=== PATIENT | female | born 1990 | race Caucasian/White ===

== ENCOUNTER 2017-04-09 12:44 | Emergency (ER) | payer MEDICAID ==
[~2017-04-09] VITALS: Ht 157.5 cm; Wt 50.0 kg
[2017-04-09 13:25] VITALS: BP 118/56
== END 2017-04-09 17:05 | disposition left against medical advice (07) ==
LOC: ER 12:44
DX: Z53.21 Procedure and treatment not carried out due to patient leaving prior to being seen by health care provider (principal)

== ENCOUNTER 2017-08-31 07:19 | Emergency (ER) | payer MEDICAID ==
[~2017-08-31] VITALS: Ht 157.5 cm; Wt 47.0 kg
[2017-08-31] MEDS ORDERED: FAMOTIDINE 20MG/2ML VIAL IV STA (08:55)
[2017-08-31] MEDS ORDERED: ONDANSETRON HCL 4MG/2ML VIAL IV STA (08:55)
[2017-08-31] MEDS ORDERED: SODIUM CHLORIDE 0.9% 1,000 ML IV ONE (08:55)
[2017-08-31 09:25] LABS: CHLORIDE 106 mEq/L (98-107)
[2017-08-31 09:27] LABS: BASOPHILS % 0.4 % (0.0-2.0); EOSINOPHILS % 0.5 % (0.0-5.0); HEMATOCRIT. 40.1 % (36.0-48.0); HEMOGLOBIN. 13.4 g/dL (12.0-16.0); LYMPHOCYTES % 12.9 % (20.0-50.0); MEAN CORPUSCULAR HEMOGLOBIN 31.2 pg (28.0-32.0); MEAN CORPUSCULAR VOLUME 93.5 fL (81.0-99.0); MEAN PLATELET VOLUME 8.2 fl (7.4-10.4); MONOCYTES % 4.7 % (2.0-8.0); NEUTROPHILS % 81.5 % (40.0-76.0); PLATELET 265 x1000/uL (130-400); RED BLOOD CELL COUNT 4.29 mill/uL (4.2-5.4); RED CELL DISTRIBUTION WIDTH 14.3 % (11.6-14.6)
[2017-08-31 11:02] LABS: HCG SCREEN NEGATIVE
[2017-08-31 11:11] LABS: *AMPHETAMINES SCREEN URINE NEGATIVE (NEGATIVE); *BARBITURATES SCREEN URINE NEGATIVE (NEGATIVE); *BENZODIAZEPINES SCREEN URINE NEGATIVE (NEGATIVE); *COCAINE SCREEN URINE NEGATIVE (NEGATIVE); METHADONE URINE SCREEN NEGATIVE (NEGATIVE); OPIATES URINE SCREEN NEGATIVE (NEGATIVE); PHENCYCLIDINE URINE SCREEN NEGATIVE (NEGATIVE)
[2017-08-31 11:45] LABS: CANNABINOID URINE SCREEN PRESUMTIVE POSITIVE (NEGATIVE)
[2017-08-31 11:57] LABS: CLARITY URINE CLEAR (CLEAR); COLOR URINE YELLOW (YELLOW); KETONES URINE 2+ (NEGATIVE); LEUKOCYTE ESTERASE URINE TRACE (NEGATIVE); NITRITE URINE NEGATIVE (NEGATIVE); OCCULT BLOOD URINE 3+ (NEGATIVE); PH URINE 6.5 (4.5-8.0); PROTEIN URINE NEGATIVE (NEGATIVE); UROBILINOGEN URINE 0.2 E.U./dL (0.2-1.0)
[2017-08-31 12:33] VITALS: BP 105/75
== END 2017-08-31 13:25 | disposition home or self-care (01) ==
LOC: ER 07:32
DX: R10.13 Epigastric pain (principal); R53.1 Weakness; F41.9 Anxiety disorder, unspecified; E86.0 Dehydration; R45.850 Homicidal ideations; R45.851 Suicidal ideations; F12.10 Cannabis abuse, uncomplicated
CPT/HCPCS: 36415; 71045; 80053; 80305; 81003; 83690; 84703; 85025; 93005; 96361; 96374; 96375; 99285; J2405; J3490; J7030; Z7610

== ENCOUNTER 2018-08-12 07:01 | Emergency (ER) | payer MEDICAID ==
[~2018-08-12] VITALS: Ht 157.5 cm; Wt 50.0 kg
[2018-08-12 07:25] VITALS: BP 106/67
[2018-08-12 08:28] LABS: CLARITY URINE CLEAR (CLEAR); COLOR URINE YELLOW (YELLOW); KETONES URINE 3+ (NEGATIVE); LEUKOCYTE ESTERASE URINE NEGATIVE (NEGATIVE); NITRITE URINE NEGATIVE (NEGATIVE); OCCULT BLOOD URINE NEGATIVE (NEGATIVE); PH URINE 6.5 (4.5-8.0); PROTEIN URINE NEGATIVE (NEGATIVE); SPECIFIC GRAVITY URINE 1.029 (1.005-1.030)
== END 2018-08-12 13:27 | disposition left against medical advice (07) ==
LOC: ER 07:01
DX: Z53.21 Procedure and treatment not carried out due to patient leaving prior to being seen by health care provider (principal)
CPT/HCPCS: 81025

== ENCOUNTER 2018-09-19 10:13 | Emergency (ER) | payer MEDICAID ==
[~2018-09-19] VITALS: Ht 157.5 cm; Wt 50.0 kg
[2018-09-19] MEDS ORDERED: SODIUM CHLORIDE 0.9% 1,000 ML IV ONE (12:36)
[2018-09-19] MEDS ORDERED: ONDANSETRON HCL 4MG/2ML INJ IV STA (12:36)
[2018-09-19 12:56] LABS: CLARITY URINE CLEAR (CLEAR); COLOR URINE YELLOW (YELLOW); KETONES URINE 3+ (NEGATIVE); LEUKOCYTE ESTERASE URINE NEGATIVE (NEGATIVE); NITRITE URINE NEGATIVE (NEGATIVE); OCCULT BLOOD URINE NEGATIVE (NEGATIVE); PROTEIN URINE NEGATIVE (NEGATIVE); SPECIFIC GRAVITY URINE 1.026 (1.005-1.030)
[2018-09-19 13:23] LABS: HEMATOCRIT 40.6 % (36.0-48.0); HEMOGLOBIN 13.3 g/dL (12.0-16.0); MEAN CORPUSCULAR HEMOGLOBIN 31.1 pg (28.0-32.0); MEAN CORPUSCULAR VOLUME 94.7 fL (81.0-99.0); PLATELET 263 x1000/uL (130-400); RED BLOOD CELL COUNT 4.29 mill/uL (4.2-5.4); RED CELL DISTRIBUTION WIDTH 14.1 % (11.6-14.6)
[2018-09-19 13:29] LABS: CHLORIDE 103 mEq/L (98-107)
[2018-09-19] MEDS ORDERED: CEFTRIAXONE 1 G PREMIX 50 ML IV ONE (14:00)
[2018-09-19] MEDS ORDERED: POTASSIUM CHLORIDE 20MEQ TABLET SR PO ONE (14:15)
[2018-09-19 14:36] VITALS: BP 108/75
== END 2018-09-19 14:38 | disposition home or self-care (01) ==
LOC: ER 10:13
DX: O26.891 Other specified pregnancy related conditions, first trimester (principal); J02.0 Streptococcal pharyngitis; O21.9 Vomiting of pregnancy, unspecified; Z3A.01 Less than 8 weeks gestation of pregnancy
CPT/HCPCS: 36415; 80048; 81003; 81025; 85027; 87430; 87804; 96365; 96375; 99283; J0696; J2405; J7030

== ENCOUNTER 2018-12-25 12:31 | Observation (INO) | payer MEDICAID ==
[~2018-12-25] VITALS: Ht 157.5 cm; Wt 52.0 kg
[2018-12-25 12:39] VITALS: BP 119/71
[2018-12-25] MEDS ORDERED: PREN-55 PO (13:25)
[2018-12-25] MEDS ORDERED: DEXT 5%/LACTATED RINGERS 1,000 ML IV ONE (13:30)
[2018-12-25] MEDS ORDERED: ACETAMINOPHEN 650MG/20.3ML UDC PO ONE (13:30)
[2018-12-25 14:06] LABS: CLARITY URINE CLEAR (CLEAR); COLOR URINE YELLOW (YELLOW); KETONES URINE NEGATIVE (NEGATIVE); LEUKOCYTE ESTERASE URINE TRACE (NEGATIVE); NITRITE URINE NEGATIVE (NEGATIVE); OCCULT BLOOD URINE NEGATIVE (NEGATIVE); PH URINE 6.5 (4.5-8.0); PROTEIN URINE NEGATIVE (NEGATIVE); UROBILINOGEN URINE 0.2 E.U./dL (0.2-1.0)
[2018-12-25 14:47] LABS: BASOPHILS % 0.2 % (0.0-2.0); EOSINOPHILS % 0.3 % (0.0-5.0); HEMATOCRIT. 37.4 % (36.0-48.0); HEMOGLOBIN. 12.4 g/dL (12.0-16.0); LYMPHOCYTES % 7.8 % (20.0-50.0); MEAN CORPUSCULAR HEMOGLOBIN 30.9 pg (28.0-32.0); MEAN CORPUSCULAR VOLUME 93.1 fL (81.0-99.0); MEAN PLATELET VOLUME 9.6 fl (7.4-10.4); MONOCYTES % 3.9 % (2.0-8.0); NEUTROPHILS % 87.8 % (40.0-76.0); PLATELET 194 x1000/uL (130-400); RED BLOOD CELL COUNT 4.01 mill/uL (4.2-5.4); RED CELL DISTRIBUTION WIDTH 14.1 % (11.6-14.6)
== END 2018-12-25 15:32 | disposition home or self-care (01) ==
LOC: ER 12:49 → 8 EST LDRP 12:51
PROVIDERS: ADMIT Obstetrics & Gynecology; ATTEND Obstetrics & Gynecology
DX: O21.2 Late vomiting of pregnancy (principal); O26.892 Other specified pregnancy related conditions, second trimester; R51 Headache; Z3A.21 21 weeks gestation of pregnancy
CPT/HCPCS: 36415; 76805; 81003; 85025; 99281; G0378; 96360; 96361

== ENCOUNTER 2019-05-02 02:19 | Inpatient (IN) | payer MEDICAID ==
[~2019-05-02] VITALS: Ht 157.5 cm; Wt 70.8 kg
[~2019-05-02 02:19] MED LIST: PREN-55 PO
[2019-05-02] MEDS ORDERED: CARBOPROST TROMETHAMINE 250 MCG/ML AMPUL IM PRN (03:00)
[2019-05-02] MEDS ORDERED: LIDOCAINE HCL 1% 20ML VIAL (Pyxis) INJ INFIL SCH (03:00)
[2019-05-02] MEDS ORDERED: NALOXONE HCL 0.4 MG/ML 1ML VIAL IM PRN (03:00)
[2019-05-02] MEDS: LACTATED RINGERS 1,000 ML IV SCH ×3 (03:54→10:08)
[2019-05-02] MEDS ORDERED: PENICILLIN G POTASSIUM 5 MMU in DEXT 5% WATER 100 ML IV SCH (04:00)
[2019-05-02] MEDS: BUTORPHANOL TARTRATE 2 MG/ML VIAL IV PRN ×2 (04:23→07:12)
[2019-05-02 04:57] LABS: CLARITY URINE CLOUDY (CLEAR); COLOR URINE ORANGE (YELLOW); KETONES URINE NEGATIVE (NEGATIVE); LEUKOCYTE ESTERASE URINE 3+ (NEGATIVE); NITRITE URINE NEGATIVE (NEGATIVE); OCCULT BLOOD URINE 3+ (NEGATIVE); PROTEIN URINE 1+ (NEGATIVE); SPECIFIC GRAVITY URINE 1.017 (1.005-1.030)
[2019-05-02 04:58] LABS: BASOPHILS % 0.3 % (0.0-2.0); EOSINOPHILS % 0.9 % (0.0-5.0); HEMATOCRIT. 36.9 % (36.0-48.0); HEMOGLOBIN. 12.1 g/dL (12.0-16.0); MEAN CORPUSCULAR HEMOGLOBIN 29.1 pg (28.0-32.0); MEAN PLATELET VOLUME 9.1 fl (7.4-10.4); NEUTROPHILS % 73.8 % (40.0-76.0); PLATELET 240 x1000/uL (130-400); RED BLOOD CELL COUNT 4.15 mill/uL (4.2-5.4); RED CELL DISTRIBUTION WIDTH 15.6 % (11.6-14.6)
[2019-05-02 05:07] LABS: INR 0.9; PARTIAL THROMBOPLASTIN TIME 28.2 sec (23.4-31.0); PROTHROMBIN TIME 9.4 sec (9.6-11.0)
[2019-05-02 05:31] LABS: *AMPHETAMINES SCREEN URINE NEGATIVE (NEGATIVE); *BARBITURATES SCREEN URINE NEGATIVE (NEGATIVE)
[2019-05-02 05:32] LABS: *BENZODIAZEPINES SCREEN URINE NEGATIVE (NEGATIVE); *COCAINE SCREEN URINE NEGATIVE (NEGATIVE); METHADONE URINE SCREEN NEGATIVE (NEGATIVE); OPIATES URINE SCREEN NEGATIVE (NEGATIVE); PHENCYCLIDINE URINE SCREEN NEGATIVE (NEGATIVE)
[2019-05-02 05:33] LABS: CANNABINOID URINE SCREEN NEGATIVE (NEGATIVE)
[2019-05-02] MEDS ORDERED: ROPIVACAINE HCL/PF EPIDURAL 200 ML EPI SCH (09:15)
[2019-05-02] MEDS ORDERED: DIPHENHYDRAMINE 50MG/ML VIAL IV PRN (09:15)
[2019-05-02] MEDS ORDERED: ONDANSETRON HCL 4MG/2ML INJ IV PRN (09:15)
[2019-05-02] MEDS ORDERED: KETOROLAC 30MG/ML VIAL IV PRN (09:30)
[2019-05-02] MEDS ORDERED: DIPHENHYDRAMINE 50MG/ML VIAL IM PRN (09:30)
[2019-05-02] MEDS ORDERED: ONDANSETRON HCL 4MG/2ML INJ IM PRN (09:30)
[2019-05-02] MEDS ORDERED: MINERAL OIL 30ML BOTTLE PO NR (09:30)
[2019-05-02] MEDS ORDERED: NALOXONE HCL 0.4 MG/ML 1ML VIAL IV PRN (09:30)
[2019-05-02] MEDS: PENICILLIN G POTASSIUM 2.5 MMU in DEXTROSE 5% WATER 50 ML IV SCH ×2 (10:30→14:49)
[2019-05-02 11:15] LABS: HEPATITIS B SURFACE ANTIGEN NEGATIVE
[2019-05-02] MEDS: DEXT 5%/LR + PITOCIN 20UNITS/L 1,000 ML IV SCH ×2 (12:11→19:42)
[2019-05-02] MEDS ORDERED: DEXT 5%/LR + PITOCIN 20UNITS/L 1,000 ML IV SCH (19:03)
[2019-05-02] MEDS ORDERED: LANOLIN OINT 7GM TUBE TOP PRN (19:15)
[2019-05-02] MEDS ORDERED: GLYCERIN/WITCH HAZEL LEAF MEDICATED PAD TOP PRN (19:15)
[2019-05-02] MEDS ORDERED: DIPHENHYDRAMINE 25MG CAPSULE PO PRN (19:15)
[2019-05-02] MEDS ORDERED: IBUPROFEN 400MG TABLET PO PRN (19:15)
[2019-05-02] MEDS ORDERED: BISACODYL 10MG SUPP PR PRN (19:15)
[2019-05-02] MEDS ORDERED: TETANUS, DIPHTHERIA, PERTUSSIS VAC/PF 0.5ML (>7YR OLD) IM ONE (19:15)
[2019-05-02] MEDS ORDERED: HEMORRHOIDAL SUPP PR PRN (19:15)
[2019-05-02] MEDS ORDERED: ACETAMINOPHEN WITH CODEINE 300/30MG TABLET PO PRN (19:15)
[2019-05-02] MEDS: IBUPROFEN 800MG TABLET PO PRN (19:55)
[2019-05-02 21:00] VITALS: BP 115/63
[2019-05-02] MEDS: SIMETHICONE 80MG TABLET CHEW PO SCH (21:00)
[2019-05-02] MEDS: DOCUSATE SODIUM 100MG CAPSULE PO SCH (21:00)
[2019-05-03] VITALS: BP 112/65
[2019-05-03 04:40] VITALS: BP 113/66
[2019-05-03 07:30] VITALS: BP 122/78
[2019-05-03 08:15] LABS: BASOPHILS % 0.2 % (0.0-2.0); EOSINOPHILS % 0.6 % (0.0-5.0); HEMATOCRIT. 34.5 % (36.0-48.0); HEMOGLOBIN. 11.2 g/dL (12.0-16.0); LYMPHOCYTES % 11.9 % (20.0-50.0); MEAN PLATELET VOLUME 8.7 fl (7.4-10.4); MONOCYTES % 7.5 % (2.0-8.0); NEUTROPHILS % 79.8 % (40.0-76.0); PLATELET 218 x1000/uL (130-400); RED BLOOD CELL COUNT 3.87 mill/uL (4.2-5.4); RED CELL DISTRIBUTION WIDTH 15.6 % (11.6-14.6)
[2019-05-03] MEDS: PRENATAL VIT/FE FUMARATE/FA TABLET PO SCH (13:28)
[2019-05-03] MEDS: FERROUS SULFATE 325MG TABLET PO SCH (13:29)
[2019-05-03] MEDS: IBUPROFEN 800MG TABLET PO PRN (13:29)
[2019-05-03 14:10] VITALS: BP 120/72
[2019-05-03 20:30] VITALS: BP 122/81
[2019-05-03] MEDS: DOCUSATE SODIUM 100MG CAPSULE PO SCH (21:41)
[2019-05-03] MEDS: SIMETHICONE 80MG TABLET CHEW PO SCH (21:41)
[2019-05-04 04:00] VITALS: BP 107/63
[2019-05-04 07:48] VITALS: BP 118/75
[2019-05-04] MEDS: PRENATAL VIT/FE FUMARATE/FA TABLET PO SCH (09:26)
[2019-05-04] MEDS: FERROUS SULFATE 325MG TABLET PO SCH (09:26)
[2019-05-04] MEDS: SIMETHICONE 80MG TABLET CHEW PO SCH (09:26)
== END 2019-05-04 10:50 | disposition home or self-care (01) | DRG 560 ==
LOC: 8 EST LDRP 02:19 → OBSVTOIN 02:19 → 8EST 20:40
PROVIDERS: ADMIT Obstetrics & Gynecology; ATTEND Obstetrics & Gynecology
PROC: 10E0XZZ Delivery of Products of Conception, External Approach (ICD-10-PCS; principal; 2019-05-02)
PROC: 3E0R3BZ Introduction of Anesthetic Agent into Spinal Canal, Percutaneous Approach (ICD-10-PCS; 2019-05-02)
PROC: 00HU33Z Insertion of Infusion Device into Spinal Canal, Percutaneous Approach (ICD-10-PCS; 2019-05-02)
DX: O98.82 Other maternal infectious and parasitic diseases complicating childbirth (principal); B95.1 Streptococcus, group B, as the cause of diseases classified elsewhere; Z3A.39 39 weeks gestation of pregnancy; Z37.0 Single live birth
CPT/HCPCS: 36415; 80305; 81003; 86592; 86703; 86762; 86850; 86900; 87340; 99281; G0378; J0595; J2540; J2590; J2795; J7060; J7120; A4315

== ENCOUNTER 2020-10-24 11:36 | Emergency (ER) | payer MEDICAID ==
[~2020-10-24] VITALS: Ht 157.5 cm; Wt 48.0 kg
[2020-10-24 12:10] LABS: CLARITY URINE CLEAR (CLEAR); COLOR URINE YELLOW (YELLOW); KETONES URINE 3+ (NEGATIVE); LEUKOCYTE ESTERASE URINE 1+ (NEGATIVE); NITRITE URINE NEGATIVE (NEGATIVE); OCCULT BLOOD URINE NEGATIVE (NEGATIVE); PROTEIN URINE NEGATIVE (NEGATIVE); SPECIFIC GRAVITY URINE 1.028 (1.005-1.030); UROBILINOGEN URINE 0.2 E.U./dL (0.2-1.0)
[2020-10-24] MEDS ORDERED: ONDANSETRON HCL 4MG/2ML INJ IV ONE (12:15)
[2020-10-24] MEDS ORDERED: SODIUM CHLORIDE 0.9% 1,000 ML IV ONE (12:15)
[2020-10-24] MEDS ORDERED: DEXT 5%/0.9% NACL 1,000 ML IV ONE (12:15)
[2020-10-24 13:01] LABS: BASOPHILS % 0.1 % (0.0-2.0); EOSINOPHILS % 0.1 % (0.0-5.0); HEMATOCRIT. 41.5 % (36.0-48.0); HEMOGLOBIN. 13.3 g/dL (12.0-16.0); LYMPHOCYTES % 7.7 % (20.0-50.0); MEAN CORPUSCULAR HEMOGLOBIN 29.8 pg (28.0-32.0); MEAN PLATELET VOLUME 8.3 fl (7.4-10.4); MONOCYTES % 4.4 % (2.0-8.0); NEUTROPHILS % 87.7 % (40.0-76.0); PLATELET 293 x1000/uL (130-400); RED BLOOD CELL COUNT 4.46 mill/uL (4.2-5.4); RED CELL DISTRIBUTION WIDTH 14.8 % (11.6-14.6)
[2020-10-24 13:09] LABS: CHLORIDE 106 mEq/L (98-107)
[2020-10-24 13:10] LABS: INR 1.1; PROTHROMBIN TIME 11.3 sec (9.6-11.0)
[2020-10-24 13:11] LABS: HCG SCREEN NEGATIVE
[2020-10-24] MEDS ORDERED: NITR-87 MT (16:41)
[2020-10-24] MEDS ORDERED: NITROFURANTOIN 100MG M/M CAPSULE PO ONE (16:45)
[2020-10-24 18:14] VITALS: BP 121/68
== END 2020-10-24 19:00 | disposition home or self-care (01) ==
LOC: ER 11:57
DX: E86.0 Dehydration (principal); R11.10 Vomiting, unspecified; R19.7 Diarrhea, unspecified; F12.10 Cannabis abuse, uncomplicated; Z98.51 Tubal ligation status
CPT/HCPCS: 36415; 76700; 80053; 81003; 81025; 83605; 83690; 84703; 85025; 85610; 93005; 96361; 96374; 99285; J2405; J7030; J7042

== ENCOUNTER 2021-07-20 05:25 | Emergency (ER) | payer SELFPAY ==
[~2021-07-20] VITALS: Ht 157.5 cm; Wt 52.0 kg
[~2021-07-20 05:25] MED LIST changes: +NITR-87 MT; -PREN-55 PO
[2021-07-20] MEDS ORDERED: TETRACAINE/BENZOCAINE/BUTAMBEN 20 GM SPRAY MM NR (06:00)
[2021-07-20] MEDS ORDERED: TOPUD PO (06:25)
[2021-07-20] MEDS ORDERED: AMOX-424 PO (06:25)
[2021-07-20 06:55] VITALS: BP 112/60
== END 2021-07-20 06:55 | disposition home or self-care (01) ==
LOC: ER 05:25
DX: J36 Peritonsillar abscess (principal); F12.10 Cannabis abuse, uncomplicated; Z98.51 Tubal ligation status
CPT/HCPCS: 42700; 99283; Z7610

== ENCOUNTER 2021-07-21 06:12 | Emergency (ER) | payer SELFPAY ==
[~2021-07-21] VITALS: Ht 157.5 cm; Wt 68.2 kg
[~2021-07-21 06:12] MED LIST changes: +AMOX-424 PO; +TOPUD PO
[2021-07-21 06:20] VITALS: BP 127/60
[2021-07-21] MEDS ORDERED: MAGNESIUM/ALUMINUM HYDROXIDE/SIMETHICONE 30ML UDC PO STA (07:10)
[2021-07-21] MEDS ORDERED: VISCOUS LIDOCAINE 2% 15 ML UDC PO STA (07:10)
[2021-07-21] MEDS ORDERED: KETOROLAC 30MG/ML VIAL IV ONE (07:15)
[2021-07-21] MEDS ORDERED: DEXAMETHASONE 4MG/ML 1ML VIAL IV ONE (07:15)
== END 2021-07-21 08:13 | disposition home or self-care (01) ==
LOC: ER 06:34
DX: J36 Peritonsillar abscess (principal); F12.10 Cannabis abuse, uncomplicated; Z98.51 Tubal ligation status
CPT/HCPCS: 93005; 99283

== ENCOUNTER 2021-11-27 08:53 | Emergency (ER) | payer MEDICAID ==
[~2021-11-27] VITALS: Ht 157.5 cm; Wt 60.0 kg
[2021-11-27 08:59] VITALS: BP 116/63
[2021-11-27] MEDS ORDERED: AMOX-424 MT (09:38)
[2021-11-27] MEDS ORDERED: CETIRIZINE 10MG TABLET PO SCH (09:45)
[2021-11-27] MEDS ORDERED: DEXAMETHASONE 4MG/ML 1ML VIAL IM ONE (09:45)
== END 2021-11-27 10:21 | disposition home or self-care (01) ==
LOC: ER 08:53
DX: T78.40XA Allergy, unspecified, initial encounter (principal); X58.XXXA Exposure to other specified factors, initial encounter; F41.9 Anxiety disorder, unspecified; Z98.51 Tubal ligation status; F12.10 Cannabis abuse, uncomplicated
CPT/HCPCS: 96372; 99283; J1100

== ENCOUNTER 2022-10-25 16:08 | Emergency (ER) | payer MEDICAID ==
[~2022-10-25] VITALS: Ht 157.5 cm; Wt 49.0 kg
[~2022-10-25 16:08] MED LIST changes: +AMOX-424 MT
[2022-10-25] MEDS ORDERED: CYCL5TAB MT (18:51)
[2022-10-25 19:00] VITALS: BP 115/68
[2022-10-25] MEDS ORDERED: KETOROLAC 60MG/2ML VIAL IM ONE (19:00)
[2022-10-25] MEDS ORDERED: CYCLOBENZAPRINE 10MG TABLET PO ONE (19:00)
[2022-10-25 19:11] LABS: CLARITY URINE CLEAR (CLEAR); COLOR URINE YELLOW (YELLOW); KETONES URINE NEGATIVE (NEGATIVE); LEUKOCYTE ESTERASE URINE TRACE (NEGATIVE); NITRITE URINE NEGATIVE (NEGATIVE); OCCULT BLOOD URINE NEGATIVE (NEGATIVE); PROTEIN URINE NEGATIVE (NEGATIVE)
[2022-10-25] MEDS ORDERED: KETOROLAC 15MG/ML VIAL IM NR (19:15)
== END 2022-10-25 19:24 | disposition home or self-care (01) ==
LOC: ER 16:08
DX: S39.012A Strain of muscle, fascia and tendon of lower back, initial encounter (principal); F12.10 Cannabis abuse, uncomplicated; Z98.51 Tubal ligation status; X58.XXXA Exposure to other specified factors, initial encounter; Y93.89 Activity, other specified; Y92.89 Other specified places as the place of occurrence of the external cause; Y99.8 Other external cause status
CPT/HCPCS: 81003; 81025; 96372; 99283; J1885

== ENCOUNTER 2023-02-16 09:13 | Emergency (ER) | payer MEDICAID ==
[~2023-02-16] VITALS: Ht 157.5 cm; Wt 53.0 kg
[~2023-02-16 09:13] MED LIST changes: +CYCL5TAB MT
[2023-02-16 09:18] VITALS: BP 110/46; PULSE 78; RESP 17; O2SAT 99
[2023-02-16 09:45] VITALS: TEMP 98.5
[2023-02-16] MEDS ORDERED: ACETAMINOPHEN 325MG TABLET PO ONE (09:45)
[2023-02-16] MEDS ORDERED: TOPUD MT (09:46)
== END 2023-02-16 10:14 | disposition home or self-care (01) ==
LOC: ER 09:13
DX: R68.84 Jaw pain (principal); F41.9 Anxiety disorder, unspecified; Z98.51 Tubal ligation status; F12.10 Cannabis abuse, uncomplicated; Z79.899 Other long term (current) drug therapy
CPT/HCPCS: 99291

== ENCOUNTER 2023-03-10 13:39 | Emergency (ER) | payer MEDICAID ==
[~2023-03-10 13:39] MED LIST changes: +TOPUD MT
[2023-03-10 13:43] VITALS: BP 120/81; PULSE 90; RESP 16; TEMP 98.9
[2023-03-10] MEDS ORDERED: AMOX1TAB16 MT (13:57)
[2023-03-10] MEDS ORDERED: FLUT9.9S BOTHNSTRLS (13:57)
[2023-03-10] MEDS ORDERED: PHEN10TA MT (13:59)
[2023-03-10] MEDS ORDERED: CETI10CA11 MT (13:59)
[2023-03-10] MEDS ORDERED: NAPR375T5 MT (14:00)
== END 2023-03-10 14:08 | disposition home or self-care (01) ==
LOC: ER 13:39
DX: H66.91 Otitis media, unspecified, right ear (principal); F12.10 Cannabis abuse, uncomplicated; Z98.51 Tubal ligation status; Z79.899 Other long term (current) drug therapy
CPT/HCPCS: 99283

== ENCOUNTER 2023-03-11 19:34 | Emergency (ER) | payer MEDICAID ==
[~2023-03-11] VITALS: Ht 157.5 cm; Wt 51.8 kg
[~2023-03-11 19:34] MED LIST changes: +AMOX1TAB16 MT; +CETI10CA11 MT; +FLUT9.9S BOTHNSTRLS; +NAPR375T5 MT; +PHEN10TA MT
[2023-03-11 19:46] VITALS: BP 134/82; PULSE 108; RESP 16; TEMP 98.6; O2SAT 100
[2023-03-11 22:07] LABS: BASOPHILS % 0.3 % (0.0-2.0); EOSINOPHILS % 0.7 % (0.0-5.0); HEMATOCRIT. 37.4 % (36.0-48.0); HEMOGLOBIN. 12.5 g/dL (12.0-16.0); LYMPHOCYTES % 11.2 % (20.0-50.0); MEAN CORPUSCULAR HEMOGLOBIN 31.2 pg (28.0-32.0); MEAN CORPUSCULAR HGB CONC 33.4 g/dL (31.0-37.0); MEAN CORPUSCULAR VOLUME 93.4 fL (81.0-99.0); MONOCYTES % 5.3 % (2.0-8.0); NEUTROPHILS % 82.5 % (40.0-76.0); PLATELET 279 x1000/uL (130-400); RED CELL DISTRIBUTION WIDTH 13.8 % (11.6-14.6); WHITE BLOOD COUNT 12.4 x1000/uL (4.5-11.0)
[2023-03-11 22:14] LABS: CHLORIDE 106 mEq/L (98-107); INDEX HEMOLYSI 1 (1-3); INDEX ICTERIC 1 (1-4); INDEX LIPEMIC 1 (1-3); POTASSIUM 4.5 mEq/L (3.5-5.1); SODIUM 138 mEq/L (136-145)
[2023-03-11 22:21] LABS: ALANINE AMINOTRANSFERASE 15 IU/L (13-61); ALBUMIN 4.1 g/dL (3.4-5.0); ASPARTATE AMINOTRANSFERASE 13 IU/L (15-37); BILIRUBIN TOTAL 0.2 mg/dL (0.1-1.0); CALCIUM 8.9 mg/dL (8.5-10.1); CARBON DIOXIDE 29 mEq/L (21-32); CREATININE 0.5 mg/dL (0.6-1.3); GLUCOSE 94 mg/dL (70-105); UREA NITROGEN BLOOD 13 mg/dL (7-21)
[2023-03-11 22:25] LABS: PROTEIN TOTAL 8.1 g/dL (6.0-8.3); TROPONIN I HIGH SENSITIVITY 4 ng/L (<54)
== END 2023-03-11 23:31 | disposition left against medical advice (07) ==
LOC: ER 19:34
DX: Z53.21 Procedure and treatment not carried out due to patient leaving prior to being seen by health care provider (principal)
CPT/HCPCS: 36415; 71045; 80053; 84484; 85025; 93005; 99281

== ENCOUNTER 2023-03-14 12:55 | Emergency (ER) | payer MEDICAID ==
[~2023-03-14] VITALS: Ht 167.6 cm; Wt 45.0 kg
[2023-03-14 13:10] VITALS: O2SAT 97
[2023-03-14 14:09] LABS: HEMATOCRIT. 38.5 % (36.0-48.0); HEMOGLOBIN. 12.8 g/dL (12.0-16.0); MEAN CORPUSCULAR HEMOGLOBIN 31.2 pg (28.0-32.0); MEAN CORPUSCULAR HGB CONC 33.2 g/dL (31.0-37.0); MEAN CORPUSCULAR VOLUME 93.9 fL (81.0-99.0); MEAN PLATELET VOLUME 7.8 fl (7.4-10.4); PLATELET 302 x1000/uL (130-400); RED BLOOD CELL COUNT 4.09 mill/uL (4.2-5.4); RED CELL DISTRIBUTION WIDTH 13.7 % (11.6-14.6); WHITE BLOOD COUNT 11.4 x1000/uL (4.5-11.0)
[2023-03-14 14:14] LABS: DIFFERENTIAL COMMENT 1
[2023-03-14 14:41] LABS: PLATELET ESTIMATE NORMAL
[2023-03-14 15:34] LABS: CHLORIDE 103 mEq/L (98-107); INDEX HEMOLYSI 1 (1-3); INDEX ICTERIC 1 (1-4); INDEX LIPEMIC 1 (1-3); POTASSIUM 4.1 mEq/L (3.5-5.1); SODIUM 136 mEq/L (136-145)
[2023-03-14] MEDS ORDERED: LORAZEPAM 0.5MG TABLET PO ONE (15:45)
[2023-03-14 16:06] LABS: ALANINE AMINOTRANSFERASE 22 IU/L (13-61); ALBUMIN 4.3 g/dL (3.4-5.0); ASPARTATE AMINOTRANSFERASE 15 IU/L (15-37); BILIRUBIN TOTAL 0.4 mg/dL (0.1-1.0); CALCIUM 9.7 mg/dL (8.5-10.1); CARBON DIOXIDE 26 mEq/L (21-32); CREATININE 0.4 mg/dL (0.6-1.3); GLUCOSE 121 mg/dL (70-105); PROTEIN TOTAL 8.4 g/dL (6.0-8.3); UREA NITROGEN BLOOD 9 mg/dL (7-21)
[2023-03-14 16:32] LABS: TROPONIN I HIGH SENSITIVITY < 4 ng/L (<54)
[2023-03-14] MEDS ORDERED: LORAZEPAM 0.5MG TABLET PO NR (17:45)
[2023-03-14 19:27] VITALS: BP 119/80; PULSE 78; RESP 16; TEMP 97.5
== END 2023-03-14 19:28 | disposition home or self-care (01) ==
LOC: ER 13:30
DX: F41.9 Anxiety disorder, unspecified (principal); R07.89 Other chest pain; F12.10 Cannabis abuse, uncomplicated; Z98.51 Tubal ligation status
CPT/HCPCS: 36415; 71045; 80053; 84484; 85025; 93005; 99285

== ENCOUNTER 2024-02-18 22:18 | Emergency (ER) | payer MEDICAID ==
[~2024-02-18] VITALS: Ht 157.5 cm; Wt 66.0 kg
[2024-02-18 22:21] VITALS: O2SAT 98
[2024-02-18 23:18] LABS: BASOPHILS % 0.3 % (0.0-2.0); EOSINOPHILS % 2.2 % (0.0-5.0); HEMATOCRIT. 37.1 % (36.0-48.0); HEMOGLOBIN. 12.2 g/dL (12.0-16.0); LYMPHOCYTES % 21.9 % (20.0-50.0); MEAN CORPUSCULAR HEMOGLOBIN 30.1 pg (28.0-32.0); MEAN CORPUSCULAR HGB CONC 32.9 g/dL (31.0-37.0); MEAN CORPUSCULAR VOLUME 91.8 fL (81.0-99.0); MEAN PLATELET VOLUME 7.5 fl (7.4-10.4); NEUTROPHILS % 68.6 % (40.0-76.0); PLATELET 321 x1000/uL (130-400); RED BLOOD CELL COUNT 4.04 mill/uL (4.2-5.4); RED CELL DISTRIBUTION WIDTH 14.2 % (11.6-14.6); WHITE BLOOD COUNT 10.6 x1000/uL (4.5-11.0)
[2024-02-18 23:26] LABS: CHLORIDE 104 mEq/L (98-107); POTASSIUM 3.9 mEq/L (3.5-5.1); SODIUM 139 mEq/L (136-145)
[2024-02-18 23:27] LABS: CARBON DIOXIDE 29 mEq/L (21-32)
[2024-02-18 23:28] LABS: CALCIUM 9.2 mg/dL (8.7-10.4)
[2024-02-18 23:32] LABS: CREATININE 0.7 mg/dL (0.6-1.0); GLUCOSE 86 mg/dL (70-105)
[2024-02-18 23:33] LABS: UREA NITROGEN BLOOD 10 mg/dL (9-23)
[2024-02-18 23:38] VITALS: BP 132/80; PULSE 74; RESP 20; TEMP 98.8; O2SAT 100
[2024-02-19 00:24] LABS: TROPONIN I HIGH SENSITIVITY < 4 ng/L (3.0-34)
[2024-02-19] MEDS ORDERED: METH-653 MT (04:20)
[2024-02-19] MEDS ORDERED: IBUP-2030 MT (04:20)
== END 2024-02-19 05:52 | disposition left against medical advice (07) ==
LOC: ER 22:18
DX: M54.12 Radiculopathy, cervical region (principal); F12.10 Cannabis abuse, uncomplicated; Z79.899 Other long term (current) drug therapy
CPT/HCPCS: 36415; 71045; 72040; 80048; 84484; 85025; 93005; 99285

== ENCOUNTER 2024-10-01 23:05 | Emergency (ER) | payer MEDICAID, OTHER ==
[~2024-10-01] VITALS: Ht 157.5 cm; Wt 60.0 kg
[~2024-10-01 23:05] MED LIST changes: -CYCL5TAB MT; +CYCL5TAB3 MT; +IBUP-2030 MT; +METH-653 MT; +NAPR-1494 MT; -NAPR375T5 MT
[2024-10-01 23:24] VITALS: O2SAT 100
[2024-10-01 23:26] VITALS: BP 131/61; PULSE 76; RESP 16; TEMP 36.8; O2SAT 97
[2024-10-02] MEDS ORDERED: DIPHENHYDRAMINE 50MG CAPSULE PO ONE (00:15)
[2024-10-02] MEDS ORDERED: FAMOTIDINE 20MG TABLET PO ONE (00:15)
[2024-10-02] MEDS ORDERED: PREDNISONE 20MG TABLET PO ONE (00:15)
== END 2024-10-01 23:39 | disposition left against medical advice (07) ==
LOC: ER 23:05
DX: R21 Rash and other nonspecific skin eruption (principal); Z53.21 Procedure and treatment not carried out due to patient leaving prior to being seen by health care provider
CPT/HCPCS: Q0163

== ENCOUNTER 2024-10-21 18:41 | Emergency (ER) | payer OTHER ==
[~2024-10-21] VITALS: Ht 157.5 cm; Wt 60.5 kg
[2024-10-21 18:51] VITALS: O2SAT 97
[2024-10-21 19:01] VITALS: BP 127/80; PULSE 77; RESP 16; TEMP 36.9; O2SAT 99
[2024-10-21] MEDS ORDERED: P50 MT (19:19)
== END 2024-10-21 19:32 | disposition home or self-care (01) ==
LOC: ER 18:41
DX: R21 Rash and other nonspecific skin eruption (principal); Z79.1 Long term (current) use of non-steroidal anti-inflammatories (NSAID); Z98.51 Tubal ligation status
CPT/HCPCS: 99283

== ENCOUNTER 2024-10-28 16:38 | Emergency (ER) | payer OTHER ==
[~2024-10-28] VITALS: Ht 157.5 cm; Wt 58.0 kg
[~2024-10-28 16:38] MED LIST changes: +P50 MT
[2024-10-28 16:47] VITALS: O2SAT 98
[2024-10-28 17:14] LABS: BASOPHILS % 0.4 % (0.0-2.0); EOSINOPHILS % 0.1 % (0.0-5.0); HEMATOCRIT. 38.8 % (36.0-48.0); LYMPHOCYTES % 7.9 % (20.0-50.0); MEAN CORPUSCULAR HGB CONC 33.4 g/dL (31.0-37.0); MEAN CORPUSCULAR VOLUME 92.8 fL (81.0-99.0); MEAN PLATELET VOLUME 8.1 fl (7.4-10.4); NEUTROPHILS % 86.6 % (40.0-76.0); PLATELET 302 x1000/uL (130-400); RED BLOOD CELL COUNT 4.18 mill/uL (4.2-5.4); RED CELL DISTRIBUTION WIDTH 14.9 % (11.6-14.6); WHITE BLOOD COUNT 11.1 x1000/uL (4.5-11.0)
[2024-10-28 17:20] LABS: CHLORIDE 106 mEq/L (98-107); POTASSIUM 3.7 mEq/L (3.5-5.1); SODIUM 140 mEq/L (136-145)
[2024-10-28 17:21] LABS: CARBON DIOXIDE 29 mEq/L (21-32)
[2024-10-28 17:22] LABS: CALCIUM 10.3 mg/dL (8.7-10.4)
[2024-10-28 17:26] LABS: CREATININE 0.5 mg/dL (0.6-1.0); GLUCOSE 149 mg/dL (70-105); UREA NITROGEN BLOOD 10 mg/dL (9-23)
[2024-10-28 18:12] LABS: ALANINE AMINOTRANSFERASE 14 IU/L (10-49); HCG SCREEN NEGATIVE
[2024-10-28 18:13] LABS: ALBUMIN 4.7 g/dL (3.2-4.8); ASPARTATE AMINOTRANSFERASE 13 IU/L (<34); BILIRUBIN DIRECT 0.1 mg/dL (<=3.0); BILIRUBIN TOTAL 0.5 mg/dL (0.1-1.0)
[2024-10-28] MEDS ORDERED: DIPHENHYDRAMINE 50MG CAPSULE PO ONE (18:30)
[2024-10-28] MEDS ORDERED: TRAZ-251 MT (18:54)
[2024-10-28] MEDS: ONDANSETRON 4MG ODT PO ONE (19:10)
[2024-10-28] MEDS: DIPHENHYDRAMINE 25MG CAPSULE PO NR (19:12)
[2024-10-28 19:16] VITALS: BP 124/77; PULSE 77; RESP 18; TEMP 36.9; O2SAT 96
== END 2024-10-28 19:18 | disposition home or self-care (01) ==
LOC: ER 16:38
DX: F12.90 Cannabis use, unspecified, uncomplicated (principal); G47.00 Insomnia, unspecified; Z98.51 Tubal ligation status; Z79.899 Other long term (current) drug therapy; Z79.1 Long term (current) use of non-steroidal anti-inflammatories (NSAID)
CPT/HCPCS: 99283; 80076; 80048; 84703; 85025; 36415; Q0162; 99284; Q0163

== ENCOUNTER 2024-11-02 03:51 | Emergency (ER) | payer OTHER ==
[~2024-11-02] VITALS: Ht 157.5 cm; Wt 56.2 kg
[~2024-11-02 03:51] MED LIST changes: +TRAZ-251 MT
[2024-11-02 04:23] VITALS: O2SAT 99
[2024-11-02 04:25] VITALS: BP 128/72; PULSE 104; RESP 18; TEMP 36.5; O2SAT 99
[2024-11-02] MEDS: KETOROLAC 15MG/ML VIAL IM ONE (05:04)
[2024-11-02] MEDS ORDERED: ALPR0.25 MT (05:32)
== END 2024-11-02 05:43 | disposition home or self-care (01) ==
LOC: ER 03:51
DX: F41.9 Anxiety disorder, unspecified (principal); G47.00 Insomnia, unspecified; F12.90 Cannabis use, unspecified, uncomplicated; Z79.1 Long term (current) use of non-steroidal anti-inflammatories (NSAID); Z79.899 Other long term (current) drug therapy; Z87.891 Personal history of nicotine dependence; Z98.51 Tubal ligation status
CPT/HCPCS: 99283; 81025; 96372; J1885